=== PATIENT | female | born 1965 | race Hispanic/Latino ===

== ENCOUNTER 2018-02-13 14:26 | Outpatient (RCR) | payer MEDICARE, OTHER | END 2018-03-06 | LOC: PT 14:26 | PROVIDERS: ATTEND Specialist | DX: S93.401A Sprain of unspecified ligament of right ankle, initial encounter (principal); M25.571 Pain in right ankle and joints of right foot; M25.471 Effusion, right ankle; M25.671 Stiffness of right ankle, not elsewhere classified | CPT/HCPCS: 97162; G8978; G8979 ==